=== PATIENT | female | born 1970 | race Caucasian/White ===

== ENCOUNTER 2021-03-19 10:52 | Emergency (ER) | payer MEDICAID, OTHER ==
--- NOTE | 2021-03-19 11:51 | ED Physician Documentation ---
History of Present Illness - Stated complaint Stated Complaint: PAIN/ANXIOTY - Chief complaint Chief Complaint: Abd Pain - History obtained from History obtained from: Patient, Family, Other (Discharge records from [facility]) - Additonal information Additional information: This is a 50 yo F w/ pmh of alcoholic hepatitis and encephalopathy, depression, and anxiety who presents 4 days post discharge from [facility] w/ altered mental status. She was admitted from 03/13-03/15 at [facility] for encephalopathy per her mother and improved throughout hospital stay. Behavior was "normal" on day of discharge but she has had some agitation as well as atypical arm and body spasms today. She has not been obtunded and continues to converse, but will have sudden and spontaneous movements of the body that last seconds at a time and resolve on their own. She remains awake and conversant during these episodes. She states they are her body "reacting to everything that is happening to me. I am on the final step of my recovery from alcoholism and a lot of hurtful things will come up for me and my family." She also states she has "whole body pain." She denies any fever, cough or URI sx, cp, dyspnea, abd pain, n/v/d. Denies hallucinations, confusion, seizure like activity, hematemesis. She is on lactulose, last took it yesterday, and has one bowel movement on average each day. Non bloody. Is approximately 4 months sober per pt/mom. Denies any other drug use. Review of Systems Constitutional: reports: Reviewed and negative Eyes: reports: Reviewed and negative Ears: reports: Reviewed and negative Nose: reports: Reviewed and negative Throat: reports: Reviewed and negative Cardiac: reports: Reviewed and negative Respiratory: reports: Reviewed and negative GI: reports: Reviewed and negative : reports: Reviewed and negative Skin: reports: Reviewed and negative Musculoskeletal: reports: Neck pain, Back pain, Extremity pain, Joint pain, Other ("whole body" pain, non specific.). denies: Extremity swelling, Joint swelling Neurologic: reports: Altered mental status, Other (atypical extremity movements- ballismus. NO asterixis.). denies: Generalized weakness, Focal weakness, Numbness, Difficulty speaking, Near syncope, Syncope, Seizure, Confused, Unresponsive, Headache, Head injury, LOC Psychiatric: reports: Depressed, Anxiety. denies: Suicidal, Homicidal, Hallucinations, Delusions, Insomnia Endocrine: reports: Reviewed and negative Immunocompromised: reports: Reviewed and negative PD PAST MEDICAL HISTORY - Past Medical History Past Medical History: Yes Cardiovascular: Hypertension GI: Hepatitis, Cirrhosis - Past Surgical History Past Surgical History: Yes - Present Medications Home Medications: Ambulatory Orders Medication Instructions Recorded Confirmed Ondansetron Odt [Zofran Odt] PRN 01/14/16 Escitalopram Oxalate 5 mg PO DAILY 03/19/21 03/19/21 Furosemide [Lasix] 40 mg PO DAILY 03/19/21 03/19/21 Lactulose 10 gm PO BID 03/19/21 03/19/21 Omeprazole Magnesium 20 mg PO DAILY 03/19/21 03/19/21 Spironolactone [Aldactone] 50 mg PO DAILY 03/19/21 03/19/21 rifAXIMin [Xifaxan] 1 tablet ORAL BID 03/19/21 03/19/21 - Allergies Allergies/Adverse Reactions: Allergies Allergy/AdvReac Type Severity Reaction Status Date / Time No Known Drug Allergies Allergy Verified 03/19/21 11:05 - Social History Does the pt smoke?: Yes Smoking Status: Current every day smoker Does the pt drink ETOH?: Yes Does the pt have substance abuse?: No PD ED PE NORMAL - Vitals Vital signs reviewed: Yes - General General: Alert and oriented X 3, No acute distress, Well developed/nourished - HEENT HEENT: Atraumatic, PERRL, EOMI, Ears normal, Moist mucous membranes, Pharynx b enign - Neck Neck: Supple, no meningeal sign, No bony TTP, No adenopathy, No JVD - Cardiac Cardiac: RRR, No murmur - Respiratory Respiratory: No respiratory distress, Clear bilaterally - Abdomen Abdomen: Normal bowel sounds, Soft, Non distended, Other (small non tender periumbilical hernia, reducible. Mild ascites. ) - Back Back: No CVA TTP, No spinal TTP - Derm Derm: Normal color, Warm and dry, No rash - Extremities Extremities: No deformity, No tenderness to palpate, Normal ROM s pain, No edema, No calf tenderness / cord, Other (moves all ext on command and w/ 5/5 strength, no asterixis. Occasional sponatenous, irregular and ? involuntary movements of all extremities. ) - Neuro Neuro: Alert and oriented X 3, No sensory deficit, Normal speech, Other (as above) Eye Opening: Spontaneous Motor: Obeys Commands Verbal: Oriented GCS Score: 15 - Psych Psych: Normal mood, Normal affect Results - Vitals Vitals: Vital Signs - 24 hr 03/19/21 03/19/21 03/19/21 10:59 12:09 13:05 Temperature 36.9 C Heart Rate 88 75 73 Respiratory 20 16 18 Rate Blood Pressure 107/63 115/75 118/71 O2 Saturation 97 95 97 03/19/21 03/19/21 03/19/21 15:30 17:27 19:14 Temperature 37 C 37.1 C Heart Rate 80 74 84 Respiratory 18 17 16 Rate Blood Pressure 142/80 H 91/50 L 118/70 O2 Saturation 100 94 98 Oxygen O2 Source Room air - Labs Labs: Laboratory Tests 03/19/21 03/19/21 03/19/21 12:12 12:12 12:12 WBC 5.4 RBC 2.52 L Hgb 9.3 L Hct 27.2 L MCV 107.9 H MCH 36.9 H MCHC 34.2 RDW 15.2 H Plt Count 88 L MPV 9.3 Neut # (Auto) 2.9 Lymph # (Auto) 1.3 L Kimball # (Auto) 0.9 Eos # (Auto) 0.2 Baso # (Auto) 0.1 Absolute Nucleated RBC 0.00 Nucleated RBC % 0.0 Sodium 131 L Potassium 3.5 Chloride 98 L Carbon Dioxide 23 Anion Gap 10.0 BUN 13 Creatinine 0.6 Estimated GFR (MDRD) 105 Glucose 110 H Calcium 8.4 L Total Bilirubin 9.1 H AST 70 H ALT 31 Alkaline Phosphatase 152 H Ammonia 29.2 Total Protein 6.8 Albumin 2.7 L Globulin 4.1 Albumin/Globulin Ratio 0.7 L Lipase 48 Urine Color Urine Clarity Urine pH Ur Specific Preston Urine Protein Urine Glucose (UA) Urine Ketones Urine Occult Blood Urine Nitrite Urine Bilirubin Urine Urobilinogen Ur Leukocyte Esterase Urine RBC Urine WBC Ur Squamous Epith Cells Urine Bacteria Urine Mucus Ur Microscopic Review Urine Culture Comments 03/19/21 16:56 WBC RBC Hgb Hct MCV MCH MCHC RDW Plt Count MPV Neut # (Auto) Lymph # (Auto) Kimball # (Auto) Eos # (Auto) Baso # (Auto) Absolute Nucleated RBC Nucleated RBC % Sodium Potassium Chloride Carbon Dioxide Anion Gap BUN Creatinine Estimated GFR (MDRD) Glucose Calcium Total Bilirubin AST ALT Alkaline Phosphatase Ammonia Total Protein Albumin Globulin Albumin/Globulin Ratio Lipase Urine Color DARK YELLOW Urine Clarity CLEAR Urine pH 5.5 Ur Specific Preston 1.025 Urine Protein NEGATIVE Urine Glucose (UA) NEGATIVE Urine Ketones TRACE Urine Occult Blood LARGE H Urine Nitrite POSITIVE H Urine Bilirubin NEGATIVE Urine Urobilinogen 2 H Ur Leukocyte Esterase SMALL H Urine RBC 11-25 H Urine WBC 6-10 H Ur Squamous Epith Cells MOD Squamous H Urine Bacteria Few Urine Mucus Few Strands Ur Microscopic Review INDICATED Urine Culture Comments NOT INDICATED PD MEDICAL DECISION MAKING - ED course Complexity details: reviewed old records, reviewed results, re-evaluated patient, considered differential, d/w patient, d/w family, d/w test consultant ED course: This is a 50-year-old female with a past medical history of alcoholism and encephalopathy who presented with atypical body movements as well as altered mental status. She is awake and alert on initial exam but having in a b allistic, irregular and spontaneous movement of the extremities and occasionally shouting out words. We did a work-up for encephalopathy which was largely reassuring, her labs are stable. I discussed the case with the [facility] groundskeeper [facility] who saw the patient as well and was concern for possible organic cause of these movements. Therefore we proceeded with a CT which was negative and a noncontrast MRI which was also negative for acute stroke. Per recommendations of telepsych we did attempt to consult neurology at [facility] where patient was recently admitted. She then took a nap and woke up in her behavior was essentially normal, her speech was normal, and she had no further extremity movements. She had no new neuro symptoms. I reviewed the case with the on-call neurologist at [facility] who felt the patient was stable for outpatient follow-up and her symptoms were not c/w stroke. She did voice suicidal ideation during her telepsych visit and shouted out "knives" When asked if she had a plan, however when I discussed this with her When she was more coherent, she denied any plans to hurt herself or others. She will be staying with her mom who will be monitoring her closely and plans to call to schedule follow-up with neurology and her primary care provider tomorrow. Departure - Departure Disposition: 01 Home, Self Care Clinical Impression: Encephalopathy Condition: Good Instructions: ED Cirrhosis Liver Comments: You presented with atypical movements of the upper extremities and lower extremities as well as change in her speech and some mild confusion. We did an extensive work-up including labs, CT of your brain and MRI of your brain which were all reassuring as we discussed. You do have chronic liver disease which is stable and your ammonia today was normal. There are no signs of infection or other acute causes of your symptoms. Your symptoms seemed to resolve once you got some rest and I suspect this may be due to acute stress response but I do want you to follow-up with the neurologist and neuropsych as soon as possible. We did review your case with the tele-psychiatrist who you spoke with and the neurologist at [facility] who I spoke with over the phone. Please call tomorrow to schedule appointments and follow-up with your primary care provider as well. During your ER visit you did mention suicidal thoughts but as we discussed in the evening, you denied any plans to hurt yourself or others and felt significant support of your mother who will be staying with you.
[2021-03-19] MEDS ORDERED: LACTULOSE 10 GM /15 ML UDC PO STA (11:57)
[2021-03-19 12:18] LABS: BASOPHILS # (AUTO) 0.1 10^3/uL (0.0-0.1); BASOPHILS % (AUTO) 1.7 %; EOSINOPHILS # (AUTO) 0.2 10^3/uL (0.0-0.7); EOSINOPHILS % (AUTO) 3.7 %; HCT - HEMATOCRIT 27.2 % (37.0-47.0); HGB - HEMOGLOBIN 9.3 g/dL (12.0-16.0); LYMPHOCYTES # (AUTO) 1.3 10^3/uL (1.5-3.5); LYMPHOCYTES % (AUTO) 24.6 %; MEAN CORPUSCULAR HEMOGLOBIN 36.9 pg (27.0-31.0); MEAN CORPUSCULAR HGB CONC 34.2 g/dL (32.0-36.0); MEAN CORPUSCULAR VOLUME 107.9 fL (81.0-99.0); MEAN PLATELET VOLUME 9.3 fL (7.9-10.8); MONOCYTES # (AUTO) 0.9 10^3/uL (0.0-1.0); MONOCYTES % (AUTO) 15.8 %; NEUTROPHILS # (AUTO) 2.9 10^3/uL (1.5-6.6); NEUTROPHILS % (AUTO) 53.8 %; PLT - PLATELET COUNT 88 10^3/uL (130-450); RED BLOOD COUNT 2.52 10^6/uL (4.20-5.40); RED CELL DISTRIBUTION WIDTH 15.2 % (12.0-15.0); WHITE BLOOD COUNT 5.4 x10^3/uL (4.8-10.8)
[2021-03-19 12:30] LABS: ALBUMIN 2.7 g/dL (3.2-5.5); ALBUMIN/GLOBULIN RATIO 0.7 (1.0-2.2); BILIRUBIN,TOTAL 9.1 mg/dL (0.2-1.0); CALCIUM 8.4 mg/dL (8.5-10.3); CREATININE 0.6 mg/dL (0.4-1.0); POTASSIUM 3.5 mmol/L (3.5-5.0); TOTAL PROTEIN 6.8 g/dL (6.7-8.2)
--- NOTE | 2021-03-19 15:53 | CT Report ---
PROCEDURE: HEAD WO INDICATIONS: ballismus, ams TECHNIQUE: Noncontrast 4.5 mm thick angled axial sections acquired from the foramen magnum to the vertex. For r adiation dose reduction, the following was used: automated exposure control, adjustment of mA and/or kV according to patient size. COMPARISON: None. FINDINGS: Image quality: There is streak artifact seen through the skull base. CSF spaces: Basal cisterns are patent. No extra-axial fluid collections. Ventricles are normal in size and shape. Brain: No midline shift. No intracranial masses or hemorrhage. Perez-white matter interface is norm al. Skull and face: Calvarium and visualized facial bones are intact, without suspicious lesions. Sinuses: Visualized sinuses and mastoids are clear. IMPRESSION: No significant noncontrast head CT abnormality can be seen. Please consider follow-up brain MRI (without and with contrast) for further evaluation (assuming th at there is no contraindication). Note: Findings and recommendations discussed by telephone with Dona Manzano at 2:50 PM [place] time on 03/19/2021. Reviewed by: Nazario Zheng MD on 03/19/2021 2:51 PM [place] Approved by: Nazario Zheng MD on 03/19/2021 2:51 PM [place] Station ID: [id number]
--- NOTE | 2021-03-19 17:22 | MRI Report ---
PROCEDURE: Brain W/O INDICATIONS: atypical movement, clinical concern for stroke TECHNIQUE: Noncontrast axial T1 spin echo, axial T2 fast spin echo, sagittal and axial FLAIR, coronal T2 fast sp in echo, axial gradient echo, axial diffusion and ADC through the brain. COMPARISON: Correlation is made with noncontrast head CT, 03/19/2021. FINDINGS: Image quality: Excellent. CSF Spaces: Basal cisterns are patent. No extra-axial fluid collections. Ventricles are normal in size and shape. Brain: No intracranial masses or hemorrhage. Perez/white matter interface is normal. Brainstem appe ars normal. Diffusion-weighted images demonstrate no acute ischemic insult. No chronic ischemic ins ults. Normal intravascular flow voids are present. Prominent perivascular spaces are incidentally no myla. Scattered foci of T2-weighted hyperintensity can be seen within the periventricular and deep white ma tter. A few of the periventricular lesions demonstrate a perpendicular orientation to the lateral sarah tricles. There is involvement of the undersurface of the corpus callosum. Juxtacortical lesions are also seen. If you have matter lesions can also be seen within the brainstem. Skull and face: Calvarium has normal marrow signal. Orbits appear normal. Sinuses: Sinuses and mastoids are clear. IMPRESSION: No findings of acute or subacute infarction are seen. T2 hyperintense white matter lesions are seen, which are characteristic of (although not pathognomoni c for) multiple sclerosis. Please correlate with known patient history. Reviewed by: Nazario Zheng MD on 03/19/2021 4:20 PM [place] Approved by: Nazario Zheng MD on 03/19/2021 4:20 PM [place] Station ID: [id number]
[2021-03-19 17:27] LABS: GLUCOSE, URINE (UA) NEGATIVE (NEGATIVE); KETONES,URINE (UA) TRACE mg/dL (NEGATIVE); LEUKOCYTE ESTERASE, URINE SMALL (NEGATIVE); NITRITE,URINE POSITIVE (NEGATIVE); OCCULT BLOOD,URINE LARGE (NEGATIVE); PH,URINE 5.5 PH (5.0-7.5); PROTEIN,URINE NEGATIVE (NEGATIVE); UROBILINOGEN,URINE 2 E.U./dL (NORMAL)
[2021-03-19 18:06] LABS: BILIRUBIN,URINE NEGATIVE (NEGATIVE); CLARITY,URINE CLEAR (CLEAR); ICTOTEST,URINE NEGATIVE
[2021-03-19 18:07] LABS: BACTERIA,URINE Few /HPF (None Seen); SQUAMOUS EPITHELIAL CELL,UR MOD Squamous (<= Few)
[2021-03-19 18:08] LABS: MUCUS,URINE Few Strands
[2021-03-19 19:16] VITALS: BP 118/70
== END 2021-03-19 20:18 | disposition home or self-care (01) ==
LOC: ED 10:52
DX: G93.40 Encephalopathy, unspecified (principal); K70.11 Alcoholic hepatitis with ascites; K70.31 Alcoholic cirrhosis of liver with ascites; F10.21 Alcohol dependence, in remission; I10 Essential (primary) hypertension; F32.9 Major depressive disorder, single episode, unspecified; R45.851 Suicidal ideations; F41.9 Anxiety disorder, unspecified; K42.9 Umbilical hernia without obstruction or gangrene; F17.200 Nicotine dependence, unspecified, uncomplicated
CPT/HCPCS: 36415; 70450; 70551; 80053; 81001; 82140; 83690; 85025; 99284; A9270; Q3014; 81003; 87086

== ENCOUNTER 2021-03-20 04:59 | Outpatient (CLI) | payer MEDICAID | END 2021-03-20 05:00 | disposition critical access hospital (66) | LOC: EMS 04:59 | DX: F41.0 Panic disorder [episodic paroxysmal anxiety] (principal); R45.851 Suicidal ideations | CPT/HCPCS: A0425; A0429; A0999 ==

== ENCOUNTER 2021-03-20 05:29 | Emergency (ER) | payer MEDICAID ==
--- NOTE | 2021-03-20 05:34 | ED Physician Documentation ---
History of Present Illness - Stated complaint Stated Complaint: MHE - History obtained from History obtained from: Patient, Family (mother), EMS - Additonal information Additional information: 50yF with pmh depression, anxiety, alcoholic cirrhosis, recently hospitalized with encephalopathy p/w "anxiety" prompting her to call EMS early this morning. mother states the patient snuck out of the house to call 911. ems reports patient endorsed anxiety, insomnia and passive SI. patient denies active SI. when asked about HI, she states she wants to kill people who hurt children and trump supporters. she does endorse AVH "since I started to get sick three weeks ago", saying she intermittently thinks she's and that she's friends with Félix Lazo. 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 : None HEENT: None Psych: Anxiety, Other Musculoskeletal: None Derm: None - Past Surgical History Past Surgical History: Yes - Present Medications Home Medications: Ambulatory Orders Medication Instructions Recorded Confirmed Ondansetron Odt [Zofran Odt] PRN 01/14/16 Escitalopram Oxalate 5 mg PO DAILY 03/19/21 03/19/21 Furosemide [Lasix] 40 mg PO DAILY 03/19/21 03/19/21 Lactulose 10 gm PO BID 03/19/21 03/19/21 Omeprazole Magnesium 20 mg PO DAILY 03/19/21 03/19/21 Spironolactone [Aldactone] 50 mg PO DAILY 03/19/21 03/19/21 Lactulose 30 ml PO BID 30 Days #240 ml 03/20/21 rifAXIMin [Xifaxan] 550 mg PO BID 30 Days #60 tablet 03/20/21 - Allergies Allergies/Adverse Reactions: Allergies Allergy/AdvReac Type Severity Reaction Status Date / Time No Known Drug Allergies Allergy Verified 03/20/21 05:36 - Social History Does the pt smoke?: Yes Smoking Status: Current every day smoker Does the pt drink ETOH?: Yes Does the pt have substance abuse?: No - Immunizations Immunizations are current?: Yes - POLST Patient has POLST: No PD ED PE NORMAL - Vitals Vital signs reviewed: Yes - General General: Alert and oriented X 3, No acute distress, Well developed/nourished, Other (jaundiced appearing) - HEENT HEENT: Atraumatic, PERRL, EOMI, Moist mucous membranes - Neck Neck: Supple, no meningeal sign - Cardiac Cardiac: RRR - Respiratory Respiratory: No respiratory distress, Clear bilaterally - Abdomen Abdomen: Non tender, Non distended - Back Back: No CVA TTP - Derm Derm: Normal color, Warm and dry - Extremities Extremities: No deformity - Neuro Neuro: Alert and oriented X 3, 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 mood is "anxious") Results - Vitals Vitals: Vital Signs - 24 hr 03/20/21 03/20/21 05:36 05:40 Temperature 36.6 C 36.6 C Heart Rate 76 76 Respiratory 16 16 Rate Blood Pressure 124/80 124/80 O2 Saturation 97 97 Oxygen O2 Source Room air PD MEDICAL DECISION MAKING - ED course ED course: Patient had extensive workup and telepsych eval here with CATRACHO Frazier including CT head, MRI, neurology consult, and social work. patient and her mother were provided with resources for outpatient mental health follow up. Will talk with mother and see if we can formulate a plan given she has already had such an extensive workup. Extensive discussion with patient, patient's mother, and patient's best friend Litzy who is a physician and helps her navigate her medical care. We agreed a multi-tiered approach including neurology, psychiatry, mental health counseling, and hepatology as well as follow up with patient's primary doctor will provide the best chance for healing and recovery in the outpatient setting. The patient contracts for safety, stating she feels safe at home and has no active suicidal plan. Mother is actively making appointments and maintaining the patient's meds. She also feels comfortable with discharge at this time. strict return precautions were discussed and it was reinforced that we are available 24hours if anything changes medically for the patient. Departure - Departure Disposition: 01 Home, Self Care Clinical Impression: Alcoholic cirrhosis Condition: Stable Instructions: ED Depression, Cirrhosis Liver Dc Prescriptions: Lactulose 30 ml PO BID 30 Days #240 ml rifAXIMin [Xifaxan] 550 mg PO BID 30 Days #60 tablet Comments: You were seen in the emergency department for evaluation of anxiety and insomnia. Please consider taking hydroxyzine or Atarax, available [id number] in the evening times as a sleep aid. Make sure that you are taking your lactulose and rifaximin regularly to help prevent liver failure related encephalopathy from occurring again. You should be having 2-3 bowel movements daily to get rid of ammonia in your bloodstream, which causes encephalopathy. Please follow up with your primary doctor, psychiatry, neurology, liver specialist, and mental health counselor as soon as possible. Return to the emergency department if you have any new or worsening symptoms or other concerns.
[2021-03-20 05:41] VITALS: BP 124/80
[2021-03-20] MEDS ORDERED: THIAMINE 100 MG TABLET PO STA (05:53)
[2021-03-20] MEDS ORDERED: hydrOXYzine PAMOATE 25 MG CAPSULE PO STA (07:14)
== END 2021-03-20 07:32 | disposition home or self-care (01) ==
LOC: EDUNIT# → SUPCPDRO 05:29 → ED 05:29
DX: F41.9 Anxiety disorder, unspecified (principal); G47.00 Insomnia, unspecified; R45.851 Suicidal ideations; R44.3 Hallucinations, unspecified; K70.31 Alcoholic cirrhosis of liver with ascites; F10.21 Alcohol dependence, in remission; I10 Essential (primary) hypertension; F17.200 Nicotine dependence, unspecified, uncomplicated
CPT/HCPCS: 99283; 99284; A9270

== ENCOUNTER 2021-03-25 13:39 | Outpatient (CLI) | payer MEDICAID | END 2021-03-25 13:40 | disposition EMS.NT | LOC: EMS 13:39 | DX: Z03.89 Encounter for observation for other suspected diseases and conditions ruled out (principal) ==

== ENCOUNTER 2021-04-13 03:14 | Emergency (ER) | payer MEDICAID ==
--- NOTE | 2021-04-13 04:23 | ED Physician Documentation ---
History of Present Illness - Stated complaint Stated Complaint: SOA - Chief complaint Chief Complaint: Resp - History obtained from History obtained from: Patient, Family (mother (see mdm)) - Additonal information Additional information: 50yF with pmh bipolar, alcoholic cirrhosis, p/w subjective dyspnea this evening lying flat in bed, improved with sitting up. patient states her abdomen has been becoming more swollen over time and her foam caster advised her it may cause some dyspnea. she denies cough, fever, leg swelling, nausea, chest pain or palpitations. Asymptomatic in the emergency department. Patient endorses chronic insomnia but denies si/hi/avh. She is seeing a therapist, Stacie, who has been helpful to her. Mood is "good". Review of Systems Ten Systems: 10 systems reviewed and negative Constitutional: denies: Fever, Chills Cardiac: denies: Chest pain / pressure Respiratory: reports: Dyspnea. denies: Cough GI: reports: Abdominal Swelling. denies: Abdominal Pain, Nausea, Vomiting Psychiatric: reports: Insomnia. 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 : None HEENT: None Psych: Anxiety, Other Musculoskeletal: None Derm: None - Past Surgical History Past Surgical History: Yes - Present Medications Home Medications: Ambulatory Orders Medication Instructions Recorded Confirmed Escitalopram Oxalate 5 mg PO DAILY 03/19/21 04/13/21 Furosemide [Lasix] 40 mg PO DAILY 03/19/21 04/13/21 Lactulose 10 gm PO BID 03/19/21 04/13/21 Spironolactone [Aldactone] 50 mg PO DAILY 03/19/21 04/13/21 Lactulose 30 ml PO BID 30 Days #240 ml 03/20/21 04/13/21 rifAXIMin [Xifaxan] 550 mg PO BID 30 Days #60 tablet 03/20/21 04/13/21 - Allergies Allergies/Adverse Reactions: Allergies Allergy/AdvReac Type Severity Reaction Status Date / Time No Known Drug Allergies Allergy Verified 04/13/21 03:25 - Social History Does the pt smoke?: Yes Smoking Status: Current every day smoker Does the pt drink ETOH?: Yes Does the pt have substance abuse?: No - Immunizations Immunizations are current?: Yes - POLST Patient has POLST: No PD ED PE NORMAL - Vitals Vital signs reviewed: Yes - General General: Alert and oriented X 3, No acute distress, Well developed/nourished, Other (jaundiced appearing) - HEENT HEENT: Atraumatic, PERRL, EOMI, Moist mucous membranes, Pharynx benign - Neck Neck: Supple, no meningeal sign - Cardiac Cardiac: RRR - Respiratory Respiratory: No respiratory distress, Clear bilaterally, Other (no increased WOB) - Abdomen Abdomen: Non tender, Other (abdomen soft and distended with +fluid wave. nontender to palpation) - Derm Derm: Normal color, Warm and dry - Extremities Extremities: No edema - Neuro Neuro: Alert and oriented X 3 - Psych Psych: Other (denies SI/HI/AVH) Results - Vitals Vitals: Vital Signs - 24 hr 04/13/21 03:20 Temperature 36.4 C L Heart Rate 90 Respiratory 21 Rate Blood Pressure 123/76 O2 Saturation 99 Oxygen O2 Source Room air PD MEDICAL DECISION MAKING - ED course ED course: patient's mother reports she woke her mother in the middle of the night and told her she was having trouble breathing, but didn't appear to be in respiratory distress. Mother states her abd is big but appears less distended than yesterday. The patient walked her dog a quarter mile a couple days ago, then yesterday went shopping but became tired easily. She can be out for about an hour before she needs to go back home to rest. She has appointment scheduled Thursday with her foam caster. I d/w patient and with mother that she should have a preprocedural evaluation and her foam caster may then decide whether to schedule her for therapeutic paracentesis. She is also undergoing evaluation as a possible liver transplant candidate. Strict return precautions discussed. plan to f/u with hepatology and therapist Thursday. Departure - Departure Disposition: Home, Self Care Clinical Impression: Alcoholic cirrhosis, Ascites Condition: Stable Instructions: ED Ascites Comments: You were seen in the emergency department for shortness of breath related to your ascites (abdominal fluid from cirrhosis). You should follow up with your [facility] foam caster this Thursday for evaluation for possible paracentesis. You also should call your therapist to schedule an appointment this Thursday. Please return to the emergency department if you have any new or worsening symptoms or other concerns.
[2021-04-13 04:36] VITALS: BP 109/78
== END 2021-04-13 04:35 | disposition home or self-care (01) ==
LOC: ED 03:14
DX: K70.31 Alcoholic cirrhosis of liver with ascites (principal); I10 Essential (primary) hypertension; F41.9 Anxiety disorder, unspecified; G47.00 Insomnia, unspecified; F17.200 Nicotine dependence, unspecified, uncomplicated
CPT/HCPCS: 99281; 99283

== ENCOUNTER 2021-04-21 12:36 | Outpatient (CLI) | payer MEDICAID | END 2021-04-21 12:37 | disposition EMS.NT | LOC: EMS 12:36 | DX: Z03.89 Encounter for observation for other suspected diseases and conditions ruled out (principal) ==

== ENCOUNTER 2021-04-21 13:42 | Emergency (ER) | payer MEDICAID ==
--- NOTE | 2021-04-21 13:56 | ED Physician Documentation ---
PD HPI MHE - Stated complaint Stated Complaint: MHE - Chief complaint Chief Complaint: MHE - History obtained from History obtained from: Patient, Police - Additional information Additional information: 50-year-old woman with alcoholic cirrhosis and potentially some psychiatric issues is brought in for a mental health evaluation by 's deputy. Is currently living with her mother. She is on a transplant list and has follow-up with hepatology for tomorrow for elective paracentesis. Reportedly has been acting strange, forgetting food and leaving it on the stove with concern for burning the house down. Mom does not feel safe with her. Patient admits to all of the above. Her only complaint is she feels like she needs IV fluids. Per patient last Etoh drink about 7 mos ago. Review of Systems Ten Systems: 10 systems reviewed and negative Constitutional: reports: Reviewed and negative Eyes: reports: Reviewed and negative Ears: reports: Reviewed and negative Nose: reports: Reviewed and negative PD PAST MEDICAL HISTORY - Past Medical History Cardiovascular: Hypertension Respiratory: None Neuro: Other Endocrine/Autoimmune: None GI: Hepatitis, Cirrhosis [employer]: None : None HEENT: None Psych: Anxiety, Other Musculoskeletal: None Derm: None - Past Surgical History Past Surgical History: Yes - Present Medications Home Medications: Ambulatory Orders Medication Instructions Recorded Confirmed Escitalopram Oxalate 5 mg PO DAILY 03/19/21 04/21/21 Furosemide [Lasix] 40 mg PO DAILY 03/19/21 04/21/21 Spironolactone [Aldactone] 50 mg PO DAILY 03/19/21 04/21/21 Lactulose 30 ml PO BID 30 Days #240 ml 03/20/21 04/21/21 rifAXIMin [Xifaxan] 550 mg PO BID 30 Days #60 tablet 03/20/21 04/21/21 Cefdinir 300 mg PO BID #20 cap 04/21/21 QUEtiapine [SEROquel] 25 mg PO QPM #60 tablet 04/21/21 - Allergies Allergies/Adverse Reactions: Allergies Allergy/AdvReac Type Severity Reaction Status Date / Time No Known Drug Allergies Allergy Verified 04/21/21 13:44 - Social History Does the pt smoke?: Yes Smoking Status: Current every day smoker Does the pt drink ETOH?: Yes Does the pt have substance abuse?: No - Immunizations Immunizations are current?: Yes - POLST Patient has POLST: No PD ED PE NORMAL - Vitals Vital signs reviewed: Yes - General General: Other (She is alert and oriented to person and place and events, vacillates on time. She has massive ascites and moderately icteric.) - HEENT HEENT: PERRL, EOMI - Neck Neck: Supple, no meningeal sign, No bony TTP - Cardiac Cardiac: RRR, No murmur - Respiratory Respiratory: No respiratory distress, Clear bilaterally - Abdomen Abdomen: Non tender, Other (Massive ascites) - Derm Derm: Normal color, Warm and dry - Extremities Extremities: No deformity, No tenderness to palpate, Normal ROM s pain - Neuro Neuro: No motor deficit, No sensory deficit, Other (She does have asterixis) Results - Vitals Vitals: Vital Signs - 24 hr 04/21/21 04/21/21 04/21/21 13:44 14:26 16:15 Temperature 36.7 C 37 C 37.2 C Heart Rate 90 78 79 Respiratory 16 20 16 Rate Blood Pressure 119/76 111/79 118/75 O2 Saturation 98 98 04/21/21 04/21/21 04/21/21 16:27 16:32 16:59 Temperature 37.1 C 37.1 C 36.9 C Heart Rate 77 76 76 Respiratory 16 18 16 Rate Blood Pressure 121/72 110/72 108/68 O2 Saturation 96 04/21/21 04/21/21 17:57 19:58 Temperature 36.8 C Heart Rate 80 72 Respiratory 19 18 Rate Blood Pressure 117/78 99/68 O2 Saturation 97 98 Oxygen O2 Source Room air - Labs Labs: Microbiology 04/21/21 16:35 Body Fluid Culture - Preliminary Ascities Fluid Laboratory Tests 04/21/21 04/21/21 04/21/21 13:43 14:06 14:06 WBC 4.6 L RBC 2.69 L Hgb 10.0 L Hct 29.2 L MCV 108.6 H MCH 37.2 H MCHC 34.2 RDW 15.0 Plt Count 97 L MPV 9.4 Neut # (Auto) 2.4 Lymph # (Auto) 1.1 L [place] # (Auto) 0.8 Eos # (Auto) 0.2 Baso # (Auto) 0.1 Absolute Nucleated RBC 0.00 Nucleated RBC % 0.0 PT INR Sodium 135 Potassium 3.1 L Chloride 100 L Carbon Dioxide 25 Anion Gap 10.0 BUN 15 Creatinine 0.5 Estimated GFR (MDRD) 130 Glucose 107 H Calcium 8.8 Total Bilirubin 7.4 H AST 90 H ALT 43 Alkaline Phosphatase 198 H Ammonia Total Protein 7.0 Albumin 2.6 L Globulin 4.3 H Albumin/Globulin Ratio 0.6 L Lipase 52 H TSH Urine Color DARK YELLOW Urine Clarity HAZY Urine pH 5.5 Ur Specific Mack[place] 1.025 Urine Protein NEGATIVE Urine Glucose (UA) NEGATIVE Urine Ketones TRACE Urine Occult Blood NEGATIVE Urine Nitrite POSITIVE H Urine Bilirubin MODERATE H Urine Urobilinogen 1 (NORMAL) Ur Leukocyte Esterase TRACE H Urine RBC 11-25 H Urine WBC 6-10 H Ur Squamous Epith Cells FEW Squamous Urine Crystals 6-10 Calcium Oxalate Amorphous Sediment Few Urine Bacteria Rare Urine Mucus Moderate Strands Ur Microscopic Review INDICATED Urine Culture Comments INDICATED Urine HCG, Qual NEGATIVE Fluid Source Fluid Color Fluid Clarity Fluid WBC Fluid RBC Fluid Neutrophils % Fluid Lymphocytes % Fluid Monocytes % Fluid Macrophages % Fld Mesothelial Cell % Salicylates < 6.0 Urine Opiates Screen NEGATIVE Ur Oxycodone Screen NEGATIVE Urine Methadone Screen NEGATIVE Ur Propoxyphene Screen NEGATIVE Acetaminophen < 10 L Ur Barbiturates Screen NEGATIVE Ur Tricyclics Screen NEGATIVE Ur Phencyclidine Scrn NEGATIVE Ur Amphetamine Screen NEGATIVE U Methamphetamines Scrn NEGATIVE U Benzodiazepines Scrn NEGATIVE Urine Cocaine Screen NEGATIVE U Cannabinoids Screen NEGATIVE Ethyl Alcohol < 5.0 Blood Type 04/21/21 04/21/21 04/21/21 14:06 14:20 14:20 WBC RBC Hgb Hct MCV MCH MCHC RDW Plt Count MPV Neut # (Auto) Lymph # (Auto) [place] # (Auto) Eos # (Auto) Baso # (Auto) Absolute Nucleated RBC Nucleated RBC % PT 27.4 H INR 2.5 H Sodium Potassium Chloride Carbon Dioxide Anion Gap BUN Creatinine Estimated GFR (MDRD) Glucose Calcium Total Bilirubin AST ALT Alkaline Phosphatase Ammonia 32.5 Total Protein Albumin Globulin Albumin/Globulin Ratio Lipase TSH 3.72 Urine Color Urine Clarity Urine pH Ur Specific Mack[place] Urine Protein Urine Glucose (UA) Urine Ketones Urine Occult Blood Urine Nitrite Urine Bilirubin Urine Urobilinogen Ur Leukocyte Esterase Urine RBC Urine WBC Ur Squamous Epith Cells Urine Crystals Amorphous Sediment Urine Bacteria Urine Mucus Ur Microscopic Review Urine Culture Comments Urine HCG, Qual Fluid Source Fluid Color Fluid Clarity Fluid WBC Fluid RBC Fluid Neutrophils % Fluid Lymphocytes % Fluid Monocytes % Fluid Macrophages % Fld Mesothelial Cell % Salicylates Urine Opiates Screen Ur Oxycodone Screen Urine Methadone Screen Ur Propoxyphene Screen Acetaminophen Ur Barbiturates Screen Ur Tricyclics Screen Ur Phencyclidine Scrn Ur Amphetamine Screen U Methamphetamines Scrn U Benzodiazepines Scrn Urine Cocaine Screen U Cannabinoids Screen Ethyl Alcohol Blood Type 04/21/21 04/21/21 15:13 16:35 WBC RBC Hgb Hct MCV MCH MCHC RDW Plt Count MPV Neut # (Auto) Lymph # (Auto) [place] # (Auto) Eos # (Auto) Baso # (Auto) Absolute Nucleated RBC Nucleated RBC % PT INR Sodium Potassium Chloride Carbon Dioxide Anion Gap BUN Creatinine Estimated GFR (MDRD) Glucose Calcium Total Bilirubin AST ALT Alkaline Phosphatase Ammonia Total Protein Albumin Globulin Albumin/Globulin Ratio Lipase TSH Urine Color Urine Clarity Urine pH Ur Specific [place] Urine Protein Urine Glucose (UA) Urine Ketones Urine Occult Blood Urine Nitrite Urine Bilirubin Urine Urobilinogen Ur Leukocyte Esterase Urine RBC Urine WBC Ur Squamous Epith Cells Urine Crystals Amorphous Sediment Urine Bacteria Urine Mucus Ur Microscopic Review Urine Culture Comments Urine HCG, Qual Fluid Source PERITONEAL Fluid Color YELLOW Fluid Clarity CLEAR Fluid WBC 61 Fluid RBC < 3000 Fluid Neutrophils % 4.0 Fluid Lymphocytes % 30.0 Fluid Monocytes % 19.0 Fluid Macrophages % 40.0 Fld Mesothelial Cell % 7.0 Salicylates Urine Opiates Screen Ur Oxycodone Screen Urine Methadone Screen Ur Propoxyphene Screen Acetaminophen Ur Barbiturates Screen Ur Tricyclics Screen Ur Phencyclidine Scrn Ur Amphetamine Screen U Methamphetamines Scrn U Benzodiazepines Scrn Urine Cocaine Screen U Cannabinoids Screen Ethyl Alcohol Blood Type B POSITIVE Procedures - Paracentesis Preparation: Consent obtained Location: [facility] Technique: Z-tract, Catheter over needle Fluid: Clear, Sent for cell count, Sent for gram stain, Sent for culture, Volume - enter cc (8,000 ml) Aftercare: No complications, Patient tolerated well PD MEDICAL DECISION MAKING - ED course ED course: 50-year-old woman with cirrhosis and related to alcoholism presents detained by Sheriff diaz for MHE. She does have psychosis And some delusions. Some clinical evidence of asterixis but her ammonia level is not high. Discussed the case by phone with her friend after the patient gave verbal permission, Litzy Rosas MD who is available at [phone]. She is very supportive and also understanding. We will do a DCR evaluation, but my suspicion is they will not detain the patient especially in light of the fact that given her cirrhosis most psychiatric facilities probably would be uncomfortable with admitting her. I will give her some FFP and try to get her paracentesis done. Paracentesis was done with symptomatic relief. Seen by the DCR and she is not being detained. Patient requested discharge. She actually wants to go to a hotel. Did not give me permission to talk with the mom by phone but Dr. Rosas was updated again. She does have evidence of UTI and given the underlying cirrhosis would definitely treat with antibiotics. Got IV Rocephin here. Departure - Departure Disposition: Home, Self Care Clinical Impression: UTI (urinary tract infection) Alcoholic cirrhosis Qualifiers: Ascites presence: with ascites Qualified Code(s): K70.31 - Alcoholic cirrhosis of liver with ascites Ascites Qualifiers: Ascites type: due to alcoholic cirrhosis Qualified Code(s): K70.31 - Alcoholic cirrhosis of liver with ascites Psychosis Qualifiers: Psychosis type: unspecified psychosis type Qualified Code(s): F29 - Unspecified psychosis not due to a substance or known physiological condition Condition: Good Instructions: Cirrhosis Liver Dc Prescriptions: Cefdinir 300 mg PO BID #20 cap QUEtiapine [SEROquel] 25 mg PO QPM #60 tablet Comments: Prescriptions sent to [facility] Total white count 4.6 Hemoglobin 10.0 Platelets 97 INR 2.5 Sodium 135 Potassium 3.1 Bilirubin 7.4 AST 90 ALT 43 Alk phos 198 Ammonia 32 Albumin 2.6 Discharge Date/Time: 04/21/21 20:23
[2021-04-21 14:01] LABS: GLUCOSE, URINE (UA) NEGATIVE (NEGATIVE); KETONES,URINE (UA) TRACE mg/dL (NEGATIVE); LEUKOCYTE ESTERASE, URINE TRACE (NEGATIVE); MUDS CUTOFF CONCENTRATIONS CUTOFF CONC BELOW:; NITRITE,URINE POSITIVE (NEGATIVE); OCCULT BLOOD,URINE NEGATIVE (NEGATIVE); PH,URINE 5.5 PH (5.0-7.5); PROTEIN,URINE NEGATIVE (NEGATIVE); UROBILINOGEN,URINE 1 (NORMAL) E.U./dL (NORMAL)
[2021-04-21 14:05] LABS: BILIRUBIN,URINE MODERATE (NEGATIVE); CLARITY,URINE HAZY (CLEAR); HCG UR QUAL NEGATIVE; ICTOTEST,URINE POSITIVE
[2021-04-21 14:11] LABS: BASOPHILS # (AUTO) 0.1 10^3/uL (0.0-0.1); BASOPHILS % (AUTO) 2.4 %; EOSINOPHILS # (AUTO) 0.2 10^3/uL (0.0-0.7); HCT - HEMATOCRIT 29.2 % (37.0-47.0); LYMPHOCYTES # (AUTO) 1.1 10^3/uL (1.5-3.5); LYMPHOCYTES % (AUTO) 23.5 %; MEAN CORPUSCULAR HEMOGLOBIN 37.2 pg (27.0-31.0); MEAN CORPUSCULAR HGB CONC 34.2 g/dL (32.0-36.0); MEAN CORPUSCULAR VOLUME 108.6 fL (81.0-99.0); MEAN PLATELET VOLUME 9.4 fL (7.9-10.8); MONOCYTES # (AUTO) 0.8 10^3/uL (0.0-1.0); MONOCYTES % (AUTO) 16.8 %; NEUTROPHILS # (AUTO) 2.4 10^3/uL (1.5-6.6); NEUTROPHILS % (AUTO) 52.1 %; PLT - PLATELET COUNT 97 10^3/uL (130-450); RED BLOOD COUNT 2.69 10^6/uL (4.20-5.40); WHITE BLOOD COUNT 4.6 x10^3/uL (4.8-10.8)
[2021-04-21] MEDS: THIAMINE INJ 100 MG in SODIUM CHLORIDE 0.9% 50 ML IV STA (14:15)
[2021-04-21 14:20] LABS: AMORPHOUS SEDIMENT,UR Few /LPF; BACTERIA,URINE Rare /HPF (None Seen); MUCUS,URINE Moderate Strands; SQUAMOUS EPITHELIAL CELL,UR FEW Squamous (<= Few)
[2021-04-21 14:21] LABS: AMPHETAMINE SCREEN,URINE NEGATIVE (NEGATIVE); BARBITURATE SCREEN,UR NEGATIVE (NEGATIVE); BENZODIAZEPINES SCREEN, URINE NEGATIVE (NEGATIVE); COCAINE SCREEN URINE NEGATIVE (NEGATIVE); CRYSTALS,URINE 6-10 Calcium Oxalate /LPF; METHADONE SCREEN, URINE NEGATIVE (NEGATIVE); METHAMPHETAMINES SCREEN, URINE NEGATIVE (NEGATIVE); OPIATE SCREEN, URINE NEGATIVE (NEGATIVE); OXYCODONE SCREEN, URINE NEGATIVE (NEGATIVE); PROPOXYPHENE SCREEN, URINE NEGATIVE (NEGATIVE); THC CANNABINOID SCREEN, URINE NEGATIVE (NEGATIVE); TRICYCLIC ANTIDEPRESSANT,URINE NEGATIVE (NEGATIVE)
[2021-04-21 14:32] LABS: INR 2.5 (0.8-1.2); PT - PROTHROMBIN TIME 27.4 secs (9.9-12.6)
[2021-04-21 14:36] LABS: ACETAMINOPHEN < 10 ug/mL (10-30); ALBUMIN 2.6 g/dL (3.2-5.5); ALBUMIN/GLOBULIN RATIO 0.6 (1.0-2.2); ALKALINE PHOSPHATASE 198 IU/L (42-121); ALT ALANINE AMINOTRANSFERASE 43 IU/L (10-60); AST ASPARTATE AMINOTRANSFERASE 90 IU/L (10-42); BILIRUBIN,TOTAL 7.4 mg/dL (0.2-1.0); BUN - BLOOD UREA NITROGEN 15 mg/dL (6-20); CALCIUM 8.8 mg/dL (8.5-10.3); CARBON DIOXIDE - CO2 25 mmol/L (21-32); CHLORIDE 100 mmol/L (101-111); CREATININE 0.5 mg/dL (0.4-1.0); ETOH - ETHANOL < 5.0 mg/dL; GFR - MDRD 130 (>89); GLUCOSE 107 mg/dL (70-100); LIPASE 52 U/L (22-51); POTASSIUM 3.1 mmol/L (3.5-5.0); SALICYLATE < 6.0 mg/dL; SODIUM 135 mmol/L (135-145)
[2021-04-21] MEDS: POTASSIUM CHLORIDE 20 MEQ TABLET PO STA (15:10)
[2021-04-21] MEDS: CHERRY SYRUP 10 ML UDC PO ONE (15:11)
[2021-04-21] MEDS: PHYTONADIONE 10 MG/ML AMP PO ONE (15:11)
[2021-04-21] MEDS: cefTRIAXone 1 GM in SODIUM CHLORIDE 0.9% MINIBAG 100 ML IV STA (15:14)
[2021-04-21 17:37] LABS: BF CLARITY CLEAR; BF SOURCE PERITONEAL; CC,BF RBC < 3000 /mm^3; CC,BF WBC 61 /mm^3
[2021-04-21 17:38] LABS: BF COLOR YELLOW
[2021-04-21] MEDS: QUEtiapine 25 MG TABLET PO STA (19:55)
[2021-04-21 19:59] VITALS: BP 99/68
== END 2021-04-21 20:23 | disposition home or self-care (01) ==
LOC: ED 13:42
DX: K70.31 Alcoholic cirrhosis of liver with ascites (principal); N39.0 Urinary tract infection, site not specified; F22 Delusional disorders; F29 Unspecified psychosis not due to a substance or known physiological condition; I10 Essential (primary) hypertension; F17.200 Nicotine dependence, unspecified, uncomplicated
CPT/HCPCS: 36415; 49082; 80053; 80306; 80307; 80320; 80329; 81001; 81025; 82140; 83690; 84443; 85025; 85610; 86900; 86901; 87070; 87086; 87205; 89051; 96365; 96367; 99283; 99284; A9270; J3411; J7040; P9017; 81003

== ENCOUNTER 2021-04-25 14:22 | Outpatient (CLI) | payer MEDICAID | END 2021-04-25 23:59 | disposition EMS.NT | LOC: EMS 14:22 | DX: Z03.89 Encounter for observation for other suspected diseases and conditions ruled out (principal) ==

== ENCOUNTER 2021-04-27 02:20 | Outpatient (CLI) | payer MEDICAID | END 2021-04-27 02:21 | disposition critical access hospital (66) | LOC: EMS 02:20 | DX: R44.0 Auditory hallucinations (principal) | CPT/HCPCS: A0425; A0429; A0999 ==

== ENCOUNTER 2021-04-27 02:49 | Emergency (ER) | payer MEDICAID ==
--- NOTE | 2021-04-27 03:00 | ED Physician Documentation ---
PD HPI ALTERED MENTAL STATUS - Stated complaint Stated Complaint: MHE - History obtained from History obtained from: Patient, Family (I discussed aspects of this case with patient's mother (Nadja Sanchez over phone with patient's conset to do so)), EMS - History of Present Illness Timing - onset: Other (see narrative below) Timing - details: Gradual onset Quality / character: Confused, Hallucinating Associated symptoms: No: Fever, Dyspnea Similar symptoms before: Diagnosis (cirrhosis) Recently seen: Emergency Dept - Additional information Additional information: BIBA for worsening hallucinations. Patient has cirrhosis due to h/o alcoholism. Per EMS report, patient has had approximately one month of auditory hallucinations which have become increasingly frequent over past 1-2 days and that tonight she perceived that her mother was trying to poison her. Patient confirms this on my HPI, tells me she feels that her mother is trying to kill her. She says the voices also constantly tell her she is worthless and recently have been telling her to kill herself. She was T+R from this ED 04/13, as well as twice last month. LIZETTE form indicates several other ED visits to other hospitals over past few months including .. , [place], and [place] Review of Systems Constitutional: denies: Fever, Chills, Sweats Cardiac: reports: Reviewed and negative Respiratory: reports: Reviewed and negative GI: reports: Abdominal Swelling. denies: Abdominal Pain, Nausea, Vomiting Neurologic: denies: Generalized weakness, Focal weakness, Numbness Psychiatric: reports: Hallucinations, Delusions. denies: Homicidal PD PAST MEDICAL HISTORY - Past Medical History Past Medical History: Yes GI: Cirrhosis - Present Medications Home Medications: Ambulatory Orders Medication Instructions Recorded Confirmed Escitalopram Oxalate 5 mg PO DAILY 03/19/21 04/21/21 Furosemide [Lasix] 40 mg PO DAILY 03/19/21 04/21/21 Spironolactone [Aldactone] 50 mg PO DAILY 03/19/21 04/21/21 Lactulose 30 ml PO BID 30 Days #240 ml 03/20/21 04/21/21 rifAXIMin [Xifaxan] 550 mg PO BID 30 Days #60 tablet 03/20/21 04/21/21 Cefdinir 300 mg PO BID #20 cap 04/21/21 QUEtiapine [SEROquel] 25 mg PO QPM #60 tablet 04/21/21 - Allergies Allergies/Adverse Reactions: Allergies Allergy/AdvReac Type Severity Reaction Status Date / Time No Known Drug Allergies Allergy Verified 04/27/21 02:55 - Living Situation Living Situation: reports: With family (mother) Living Arrangement: reports: At home PD ED PE NORMAL - Vitals Vital signs reviewed: Yes - General General: Alert and oriented X 3, No acute distress, Other (jaundiced; distended abdomen but otherwise appears cachectic) - Neck Neck: Supple, no meningeal sign - Cardiac Cardiac: RRR - Respiratory Respiratory: No respiratory distress - Abdomen Abdomen: Soft, Non tender - Neuro Neuro: Alert and oriented X 3, edger feeder 2-12 intact, No motor deficit, No sensory deficit, Normal speech Eye Opening: Spontaneous Motor: Obeys Commands Verbal: Oriented GCS Score: 15 PD ED PE EXPANDED - Cardiac Cardiac: Murmur Present (2/6 JADE cardiac base (bilateral 2nd ICS)) - Respiratory Respiratory: Decreased breath sounds (LLL) - Abdomen Abdomen: Distended, Other (soft, nontender umbilical hernia) - Derm Derm: Jaundiced Results - Vitals Vitals: Vital Signs - 24 hr 04/27/21 04/27/21 02:54 05:40 Temperature 36.7 C Heart Rate 78 95 Respiratory 20 16 Rate Blood Pressure 102/66 116/78 O2 Saturation 95 96 Oxygen O2 Source Room air - Labs Labs: Laboratory Tests 04/27/21 04/27/21 04/27/21 03:39 03:39 03:39 WBC 5.8 RBC 2.52 L Hgb 9.3 L Hct 27.0 L MCV 107.1 H MCH 36.9 H MCHC 34.4 RDW 14.3 Plt Count 75 L MPV 9.3 Neut # (Auto) 2.8 Lymph # (Auto) 1.2 L [place] # (Auto) 1.2 H Eos # (Auto) 0.5 Baso # (Auto) 0.1 Absolute Nucleated RBC 0.00 Nucleated RBC % 0.0 PT INR APTT Sodium 127 L Potassium 3.4 L Chloride 95 L Carbon Dioxide 23 Anion Gap 9.0 BUN 21 H Creatinine 0.6 Estimated GFR (MDRD) 105 Glucose 95 Calcium 8.8 Total Bilirubin 6.2 H AST 84 H ALT 43 Alkaline Phosphatase 130 H Ammonia 89.6 H* Total Protein 5.8 L Albumin 2.2 L Globulin 3.6 Albumin/Globulin Ratio 0.6 L Lipase 41 Urine Color Urine Clarity Urine pH Ur Specific [place] Urine Protein Urine Glucose (UA) Urine Ketones Urine Occult Blood Urine Nitrite Urine Bilirubin Urine Urobilinogen Ur Leukocyte Esterase Urine RBC Urine WBC Ur Squamous Epith Cells Urine Crystals Urine Bacteria Ur Microscopic Review Urine Culture Comments Nasal Adenovirus (PCR) Nasal B. parapertussis DNA (PCR) Nasal Coronavir 229E PCR Nasal Coronavir HKU1 PCR Nasal Coronavir NL63 PCR Nasal Coronavir OC43 PCR Nasal Enterovir/Rhinovir PCR Nasal Influenza B PCR Nasal Influenza A PCR Nasal Parainfluen 1 PCR Nasal Parainfluen 2 PCR Nasal Parainfluen 3 PCR Nasal Parainfluen 4 PCR Nasal RSV (PCR) Nasal B.pertussis DNA PCR Nasal C.pneumoniae (PCR) Antwon Human Metapneumo PCR Nasal M.pneumoniae (PCR) Nasal SARS-CoV-2 (PCR) Salicylates < 6.0 Urine Opiates Screen Ur Oxycodone Screen Urine Methadone Screen Ur Propoxyphene Screen Acetaminophen < 10 L Ur Barbiturates Screen Ur Tricyclics Screen Ur Phencyclidine Scrn Ur Amphetamine Screen U Methamphetamines Scrn U Benzodiazepines Scrn Urine Cocaine Screen U Cannabinoids Screen Ethyl Alcohol < 5.0 04/27/21 04/27/21 04/27/21 03:39 04:00 04:08 WBC RBC Hgb Hct MCV MCH MCHC RDW Plt Count MPV Neut # (Auto) Lymph # (Auto) [place] # (Auto) Eos # (Auto) Baso # (Auto) Absolute Nucleated RBC Nucleated RBC % PT 21.9 H INR 2.0 H APTT 35.4 H Sodium Potassium Chloride Carbon Dioxide Anion Gap BUN Creatinine Estimated GFR (MDRD) Glucose Calcium Total Bilirubin AST ALT Alkaline Phosphatase Ammonia Total Protein Albumin Globulin Albumin/Globulin Ratio Lipase Urine Color DARK YELLOW Urine Clarity CLEAR Urine pH 6.0 Ur Specific [place] 1.015 Urine Protein NEGATIVE Urine Glucose (UA) NEGATIVE Urine Ketones TRACE Urine Occult Blood NEGATIVE Urine Nitrite NEGATIVE Urine Bilirubin NEGATIVE Urine Urobilinogen 1 (NORMAL) Ur Leukocyte Esterase SMALL H Urine RBC None Seen Urine WBC 4-5 Ur Squamous Epith Cells MOD Squamous H Urine Crystals 3-5 Calcium Oxalate Urine Bacteria Rare Ur Microscopic Review INDICATED Urine Culture Comments NOT INDICATED Nasal Adenovirus (PCR) NOT DETECTED Nasal B. parapertussis DNA (PCR) NOT DETECTED Nasal Coronavir 229E PCR NOT DETECTED Nasal Coronavir HKU1 PCR NOT DETECTED Nasal Coronavir NL63 PCR NOT DETECTED Nasal Coronavir OC43 PCR NOT DETECTED Nasal Enterovir/Rhinovir PCR NOT DETECTED Nasal Influenza B PCR NOT DETECTED Nasal Influenza A PCR NOT DETECTED Nasal Parainfluen 1 PCR NOT DETECTED Nasal Parainfluen 2 PCR NOT DETECTED Nasal Parainfluen 3 PCR NOT DETECTED Nasal Parainfluen 4 PCR NOT DETECTED Nasal RSV (PCR) NOT DETECTED Nasal B.pertussis DNA PCR NOT DETECTED Nasal C.pneumoniae (PCR) NOT DETECTED Antwon Human Metapneumo PCR NOT DETECTED Nasal M.pneumoniae (PCR) NOT DETECTED Nasal SARS-CoV-2 (PCR) NOT DETECTED Salicylates Urine Opiates Screen NEGATIVE Ur Oxycodone Screen NEGATIVE Urine Methadone Screen NEGATIVE Ur Propoxyphene Screen NEGATIVE Acetaminophen Ur Barbiturates Screen NEGATIVE Ur Tricyclics Screen NEGATIVE Ur Phencyclidine Scrn NEGATIVE Ur Amphetamine Screen NEGATIVE U Methamphetamines Scrn NEGATIVE U Benzodiazepines Scrn NEGATIVE Urine Cocaine Screen NEGATIVE U Cannabinoids Screen NEGATIVE Ethyl Alcohol PD MEDICAL DECISION MAKING - ED course Complexity details: reviewed old records, reviewed results, re-evaluated patient, considered differential, d/w patient, d/w family ED course: patient's mother called in to ED and I spoke with her over the phone with patient's consent. Mother is Nadja Sanchez at . Mother tells me that patient and family has been working with DCR over past week and plan is to get patient into inpatient setting at [facility] for MHE. DCR evaluation is requested after I medically cleared patient based on clinical presentation and test results (abnormalities do not show any significant variation from previous results). Patient had been prescribed an antibiotic on previous [facility] ED visit. She tells me she cannot recall if she filled nor took this medication. When I spoke with patient's mother, she (mother) says patient did not take any of the antibiotic (refused to take it). DCR (Dany) is evaluating patient at end of my shift. Departure - Departure Clinical Impression: Hallucinations Alcoholic cirrhosis Qualifiers: Ascites presence: with ascites Qualified Code(s): K70.31 - Alcoholic cirrhosis of liver with ascites Condition: Stable
[2021-04-27 03:47] LABS: BASOPHILS # (AUTO) 0.1 10^3/uL (0.0-0.1); BASOPHILS % (AUTO) 2.1 %; EOSINOPHILS # (AUTO) 0.5 10^3/uL (0.0-0.7); EOSINOPHILS % (AUTO) 8.5 %; HGB - HEMOGLOBIN 9.3 g/dL (12.0-16.0); LYMPHOCYTES # (AUTO) 1.2 10^3/uL (1.5-3.5); LYMPHOCYTES % (AUTO) 20.7 %; MEAN CORPUSCULAR HEMOGLOBIN 36.9 pg (27.0-31.0); MEAN CORPUSCULAR HGB CONC 34.4 g/dL (32.0-36.0); MEAN CORPUSCULAR VOLUME 107.1 fL (81.0-99.0); MEAN PLATELET VOLUME 9.3 fL (7.9-10.8); MONOCYTES # (AUTO) 1.2 10^3/uL (0.0-1.0); NEUTROPHILS # (AUTO) 2.8 10^3/uL (1.5-6.6); NEUTROPHILS % (AUTO) 48.5 %; PLT - PLATELET COUNT 75 10^3/uL (130-450); RED BLOOD COUNT 2.52 10^6/uL (4.20-5.40); RED CELL DISTRIBUTION WIDTH 14.3 % (12.0-15.0); WHITE BLOOD COUNT 5.8 x10^3/uL (4.8-10.8)
[2021-04-27 03:57] LABS: PT - PROTHROMBIN TIME 21.9 secs (9.9-12.6)
[2021-04-27 04:03] LABS: ACETAMINOPHEN < 10 ug/mL (10-30); ALBUMIN 2.2 g/dL (3.2-5.5); ALBUMIN/GLOBULIN RATIO 0.6 (1.0-2.2); ALKALINE PHOSPHATASE 130 IU/L (42-121); ALT ALANINE AMINOTRANSFERASE 43 IU/L (10-60); AST ASPARTATE AMINOTRANSFERASE 84 IU/L (10-42); BILIRUBIN,TOTAL 6.2 mg/dL (0.2-1.0); BUN - BLOOD UREA NITROGEN 21 mg/dL (6-20); CALCIUM 8.8 mg/dL (8.5-10.3); CARBON DIOXIDE - CO2 23 mmol/L (21-32); CHLORIDE 95 mmol/L (101-111); CREATININE 0.6 mg/dL (0.4-1.0); ETOH - ETHANOL < 5.0 mg/dL; GFR - MDRD 105 (>89); GLUCOSE 95 mg/dL (70-100); LIPASE 41 U/L (22-51); POTASSIUM 3.4 mmol/L (3.5-5.0); SALICYLATE < 6.0 mg/dL; SODIUM 127 mmol/L (135-145); TOTAL PROTEIN 5.8 g/dL (6.7-8.2)
[2021-04-27 04:04] LABS: PARTIAL THROMBOPLASTIN TIME 35.4 secs (24.9-33.3)
[2021-04-27 04:08] LABS: BILIRUBIN,URINE NEGATIVE (NEGATIVE); GLUCOSE, URINE (UA) NEGATIVE (NEGATIVE); KETONES,URINE (UA) TRACE mg/dL (NEGATIVE); LEUKOCYTE ESTERASE, URINE SMALL (NEGATIVE); MUDS CUTOFF CONCENTRATIONS CUTOFF CONC BELOW:; NITRITE,URINE NEGATIVE (NEGATIVE); OCCULT BLOOD,URINE NEGATIVE (NEGATIVE); PROTEIN,URINE NEGATIVE (NEGATIVE); UROBILINOGEN,URINE 1 (NORMAL) E.U./dL (NORMAL)
[2021-04-27 04:09] LABS: CLARITY,URINE CLEAR (CLEAR)
[2021-04-27 04:14] LABS: BACTERIA,URINE Rare /HPF (None Seen); CRYSTALS,URINE 3-5 Calcium Oxalate /LPF; RBC,URINE None Seen /HPF (0-5); SQUAMOUS EPITHELIAL CELL,UR MOD Squamous (<= Few)
[2021-04-27 04:16] LABS: AMPHETAMINE SCREEN,URINE NEGATIVE (NEGATIVE); BARBITURATE SCREEN,UR NEGATIVE (NEGATIVE); BENZODIAZEPINES SCREEN, URINE NEGATIVE (NEGATIVE); COCAINE SCREEN URINE NEGATIVE (NEGATIVE); METHADONE SCREEN, URINE NEGATIVE (NEGATIVE); METHAMPHETAMINES SCREEN, URINE NEGATIVE (NEGATIVE); OPIATE SCREEN, URINE NEGATIVE (NEGATIVE); OXYCODONE SCREEN, URINE NEGATIVE (NEGATIVE); PROPOXYPHENE SCREEN, URINE NEGATIVE (NEGATIVE); THC CANNABINOID SCREEN, URINE NEGATIVE (NEGATIVE); TRICYCLIC ANTIDEPRESSANT,URINE NEGATIVE (NEGATIVE)
[2021-04-27] MEDS ORDERED: CALCIUM CARBONATE CHEW 500 MG TABLET PO STA ×4 (05:00→21:08)
[2021-04-27 05:58] LABS: B. PARAPERTUSSIS- RESP PCR PAN NOT DETECTED; B. PERTUSSIS- RESP PCR PANEL NOT DETECTED; C. PNEUMONIAE- RESP PCR PANEL NOT DETECTED; CORONAVIRUS 229E-RESP PCR NOT DETECTED; CORONAVIRUS HKU1-RESP PCR NOT DETECTED; CORONAVIRUS NL63-RESP PCR NOT DETECTED; CORONAVIRUS OC43-RESP PCR NOT DETECTED; HUMAN METAPNEUMOVIRUS NOT DETECTED; INFLUENZA A- RESP PCR PANEL NOT DETECTED; INFLUENZA B - RESP PCR PANEL NOT DETECTED; M. PNEUMONIAE- RESP PCR PANEL NOT DETECTED; PARAINFLUENZA VIRUS 1 NOT DETECTED; PARAINFLUENZA VIRUS 2 NOT DETECTED; PARAINFLUENZA VIRUS 3 NOT DETECTED; PARAINFLUENZA VIRUS 4 NOT DETECTED; RHINOVIRUS/ENTEROVIRUS NOT DETECTED; RSV- RESP PCR PANEL NOT DETECTED; SARS-CoV-2 -RESP PCR PANEL NOT DETECTED
--- NOTE | 2021-04-27 16:02 | ED Physician Documentation ---
ED Addendum - Addendum Addendum: 04/27/21 16:02 Seen by the DCR. He did not detain her but graciously worked on disposition and arranged for her to go to and a stabilization/detox bed. She is stable for transport. Disposition discharged to stabilization/respite bed : Condition: Stable
[2021-04-27 21:19] VITALS: BP 127/71
== END 2021-04-27 21:15 | disposition home or self-care (01) ==
LOC: EDUNIT# → ED 02:49
DX: R44.0 Auditory hallucinations (principal); K70.31 Alcoholic cirrhosis of liver with ascites; K42.9 Umbilical hernia without obstruction or gangrene; R01.1 Cardiac murmur, unspecified; Z20.822 Contact with and (suspected) exposure to COVID-19
CPT/HCPCS: 0202U; 36415; 80053; 80306; 80307; 80320; 80329; 81001; 82140; 83690; 85025; 85610; 85730; 99283; 99284; A9270; 81003; 87086